=== PATIENT | female | born 1965 | race Caucasian/White ===

== ENCOUNTER 2016-09-19 18:07 | Emergency (ER) | payer SELFPAY ==
[~2016-09-19] VITALS: Ht 154.9 cm; Wt 67.5 kg
[~2016-09-19 18:07] MED LIST: CLON0.2T PO; GABA300C5 PO; LAMO25TA PO; MACR100C2 PO; TRAZ50TA12 PO; ZOFR4TAB3 SL
[2016-09-19 18:13] VITALS: BP 184/109; PULSE 112; RESP 18; TEMP 98.9; O2SAT 97
--- NOTE | 2016-09-19 18:58 | RADHPO ---
EXAM DATE/TIME: 09/19/2016 18:36 [facility] COMPARISON: No previous studies available for comparison. INDICATIONS : Complains of fifth digit, left foot pain, after stubbing toe. MEDICAL HISTORY : None. SURGICAL HISTORY : None. ENCOUNTER: Initial ACUITY: 1 day PAIN SCORE: 7/10 LOCATION: Left foot, fifth digit FINDINGS: There is a fracture of the fifth proximal phalanx with slight angulation. It involves the metaphysis. CONCLUSION: Fifth proximal phalangeal fracture. Ricky Pink MD on September 19, 2016 at 18:56 Board Certified Radiologist. This report was verified electronically.
[2016-09-19] MEDS ORDERED: LAMO100 PO (19:17)
[2016-09-19] MEDS ORDERED: ACETAMINOPHEN/HYDROcodone 325 MG/5 MG TAB PO ONE (19:30)
[2016-09-19] MEDS ORDERED: ULTR50TA5 PO (19:38)
--- NOTE | 2016-09-19 19:38 | PD ---
HPI . Left fifth toe injury Chief Complaint: Injury Time Seen by Provider: 19:21 Travel History International Travel<30 days: No Contact w/Intl Traveler<30days: No Traveled to known affect area: No History of Present Illness HPI Patient presents with an injury to her left fifth toe. She inadvertently kicked a piece of furniture. This occurred about 3 hours ago. She states that she has treated it prior to arrival with tape, ice and ibuprofen. Despite this , she is still low on her foot secondary to pain. [id number]: Left fifth toe QUALITY: Sharp SEVERITY: Severe DURATION: 3 hours TIMING: Continuous CONTEXT: Toe versus furniture MODIFYING FACTORS: Exacerbated by walking ASSOCIATED SYMPTOMS: No associated symptoms PFSH Past Medical History Hx Anticoagulant Therapy: No Arthritis: Yes (PSORIATIC ARTHRITIS) Asthma: No Autoimmune Disease: No Bipolar Disorder: Yes Anxiety: Yes Depression: Yes Heart Rhythm Problems: No Cancer: No Cardiovascular Problems: Yes (HTN) High Cholesterol: No Chemotherapy: No Chest Pain: No Congestive Heart Failure: No COPD: No Cerebrovascular Accident: No Diabetes: Yes (2) Patient Takes Glucophage: No Diminished Hearing: No Endocrine: Yes GERD: Yes Genitourinary: No Headaches: Yes Hiatal Hernia: Yes Hypertension: Yes ( ) Immune Disorder: No Implanted Vascular Access Dvce: No Musculoskeletal: Yes Neurologic: No Psychiatric: Yes Reproductive: No Respiratory: No Immunizations Current: Yes Migraines: Yes Pancreatitis: Yes Radiation Therapy: No Sleep Apnea: No Thyroid Disease: No Ulcer: Yes Tetanus Vaccination: > 5 Years Influenza Vaccination: No PNEUMOCCOCAL Vaccine (Year): 2 ?: Not Menopausal: Yes Past Surgical History Abdominal Surgery: Yes (Perforated ulcer) Cardiac Surgery: No Cholecystectomy: Yes Ear Surgery: No Endocrine Surgery: No Eye Surgery: Yes (LASER SX 2007 LAZY EYE REPAIR CHILD) Genitourinary Surgery: No Gynecologic Surgery: No Hysterectomy: No Neurologic Surgery: No Oral Surgery: Yes (tooth extractions 2007) Pacemaker: No Thoracic Surgery: No Social History Alcohol Use: No Tobacco Use: Yes (1 PPD) Substance Use: No (hx marijuana; denies current use) Allergies-Medications (Allergen,Severity, Reaction): Coded Allergies: Percocet (Verified Allergy, Severe, NAUSEA, 09/19/16) Nonsteroidal Anti-Inflammatory Agts (Verified Adverse Reaction, Unknown, ) avoids due to hx Voltaren (Verified Adverse Reaction, Unknown, upset stomach, ulcer, 09/19/16 ) Reported Meds & Prescriptions Reported Meds & Active Scripts Active Reported Lamictal (Lamotrigine) 100 Mg Tab 100 Mg PO DAILY Clonidine (Clonidine HCl) 0.2 Mg Tab 0.2 Mg PO BID Review of Systems Except as stated in HPI: all other systems reviewed are Neg Musculoskeletal: Positive: Arthralgias Skin: Positive Change in Pigmentation Physical Exam Narrative GENERAL: Awake and alert and in no acute distress. SKIN: Warm and dry. She has some bruising at the base of the left fifth toe. CARDIOVASCULAR: Regular rate and rhythm. RESPIRATORY: No accessory muscle use. MUSCULOSKELETAL: No obvious deformities. No edema. Tender at the base of the left fifth toe. NEUROLOGICAL: Awake and alert. No obvious cranial nerve deficits. Motor grossly within normal limits. Normal speech. PSYCHIATRIC: Appropriate mood and affect; insight and judgment normal. Data Data Last Documented VS Vital Signs Date Time Temp Pulse Resp B/P Pulse Ox O2 Delivery O2 Flow Rate FiO2 09/19/16 18:13 98.9 112 18 184/109 97 Orders Toe (Min 2vws) (09/19/16 ) Acetamin-Hydrocod 325-5 Mg ([place] 5-325 (09/19/16 19:30) MDM Medical Decision Making Medical Screen Exam Complete: Yes Emergency Medical Condition: Yes Differential Diagnosis Differential diagnosis of extremity trauma includes but is not limited to fracture, sprain or strain, dislocation, contusion Narrative Course Patient presents for treatment of a left fifth toe injury. Last Impressions Toe X-Ray 09/19/16 0000 Signed Impressions: Service Date/Time: Monday, September 19, 2016 18:36 - CONCLUSION: Fifth proximal phalangeal fracture. Ricky Pink MD The x-ray was independently viewed by me. Diagnosis Primary Impression: Fracture of fifth toe, left, closed Qualified Code: S92.502A - Fracture of fifth toe, left, closed, initial encounter Patient Instructions: General Instructions, Toe Fracture (DC) Med/Other Pt SpecificInfo: Prescription(s) given Scripts Tramadol (Ultram)50 Mg Tab50 Mg PO Q4H PRN (PAIN) #12 TAB Ref 0 Prov:Gladys Francisco MD 09/19/16 Disposition: 01 DISCHARGE HOME Condition: Stable Gladys Francisco MD Sep 19, 2016 19:38
== END 2016-09-19 20:23 | disposition home or self-care (01) ==
LOC: PHED 18:07 → PHEFT 20:23
DX: S92.512A Displaced fracture of proximal phalanx of left lesser toe(s), initial encounter for closed fracture (principal); L40.50 Arthropathic psoriasis, unspecified; F31.9 Bipolar disorder, unspecified; F41.9 Anxiety disorder, unspecified; I10 Essential (primary) hypertension; E11.9 Type 2 diabetes mellitus without complications; K21.9 Gastro-esophageal reflux disease without esophagitis; F17.200 Nicotine dependence, unspecified, uncomplicated; W22.03XA Walked into furniture, initial encounter
CPT/HCPCS: 73660; 99283

== ENCOUNTER 2016-09-22 12:21 | Emergency (ER) | payer SELFPAY ==
[~2016-09-22] VITALS: Ht 154.9 cm; Wt 68.0 kg
[~2016-09-22 12:21] MED LIST changes: -GABA300C5 PO; +LAMO100 PO; -LAMO25TA PO; -MACR100C2 PO; -TRAZ50TA12 PO; +ULTR50TA5 PO; -ZOFR4TAB3 SL
[2016-09-22 12:34] VITALS: BP 168/89; PULSE 105; RESP 16; TEMP 98.4; O2SAT 97
--- NOTE | 2016-09-22 13:18 | PD ---
HPI Chief Complaint: Injury Time Seen by Provider: 13:16 Travel History International Travel<30 days: No Contact w/Intl Traveler<30days: No Traveled to known affect area: No History of Present Illness HPI 51-year-old female with recent history of fractured left fifth metatarsal presents to the ED for evaluation of left foot pain. Patient states that she went back to work today, reinjured the toe, felt a pop in the foot and has been non-weight bearing since. She denies numbness, tingling, weakness, limitations to range of motion or loss of strength of the extremity. PFSH Past Medical History Hx Anticoagulant Therapy: No Arthritis: Yes (PSORIATIC ARTHRITIS) Asthma: No Autoimmune Disease: No Bipolar Disorder: Yes Anxiety: Yes Depression: Yes Heart Rhythm Problems: No Cancer: No Cardiovascular Problems: Yes (CHOL) High Cholesterol: No Chemotherapy: No Chest Pain: No Congestive Heart Failure: No COPD: No Cerebrovascular Accident: No Diabetes: Yes (TYPE 2) Patient Takes Glucophage: Yes Diminished Hearing: No Endocrine: Yes GERD: Yes Genitourinary: No Headaches: Yes Hiatal Hernia: Yes Hypertension: Yes ( ) Immune Disorder: No Implanted Vascular Access Dvce: No Musculoskeletal: Yes Neurologic: No Psychiatric: Yes Reproductive: No Respiratory: No Immunizations Current: Yes Migraines: Yes Pancreatitis: Yes Radiation Therapy: No Sleep Apnea: No Thyroid Disease: No Ulcer: Yes Tetanus Vaccination: > 5 Years Influenza Vaccination: Yes PNEUMOCCOCAL Vaccine (Year): 2 ?: Not Menopausal: Yes Past Surgical History Abdominal Surgery: Yes (Perforated ulcer) Cardiac Surgery: No Cholecystectomy: Yes Ear Surgery: No Endocrine Surgery: No Eye Surgery: Yes (LASER SX 2006 LAZY EYE REPAIR CHILD) Genitourinary Surgery: No Gynecologic Surgery: No Hysterectomy: No Neurologic Surgery: No Oral Surgery: Yes (tooth extractions 2007) Pacemaker: No Thoracic Surgery: No Social History Alcohol Use: No Tobacco Use: Yes (1 PPD) Substance Use: No (hx marijuana; denies current use) Allergies-Medications (Allergen,Severity, Reaction): Coded Allergies: Percocet (Verified Allergy, Severe, NAUSEA, 09/22/16) Nonsteroidal Anti-Inflammatory Agts (Verified Adverse Reaction, Unknown, ) avoids due to hx Voltaren (Verified Adverse Reaction, Unknown, upset stomach, ulcer, 09/22/16 ) Reported Meds & Prescriptions Reported Meds & Active Scripts Active Lortab (Hydrocodone-Acetaminophen) 5-325 Mg Tab 1 Tab PO Q6H PRN Ultram (Tramadol HCl) 50 Mg Tab 50 Mg PO Q4H PRN Reported Lamictal (Lamotrigine) 100 Mg Tab 100 Mg PO DAILY Clonidine (Clonidine HCl) 0.2 Mg Tab 0.2 Mg PO BID Review of Systems Except as stated in HPI: all other systems reviewed are Neg Physical Exam Narrative GENERAL: Well-nourished, well-developed white female in no acute distress. SKIN: Focused skin assessment warm/dry. HEAD: Normocephalic. EYES: No scleral icterus. No injection or drainage. NECK: Supple, trachea midline. No JVD or lymphadenopathy. CARDIOVASCULAR: Regular rate and rhythm without murmurs, gallops, or rubs. RESPIRATORY: Breath sounds equal bilaterally. No accessory muscle use. GASTROINTESTINAL: Abdomen soft, non-tender, nondistended. MUSCULOSKELETAL: No cyanosis, or edema. Focused left lower extremity exam: 2+ radial pulse. Ecchymosis of the distal aspect of the dorsal foot. Tenderness to palpation of the fifth digit. Tenderness to palpation of the neck radicular. Patient is able to wiggle the toes. She is able to flex the ankle. Neurovascularly intact. BACK: Nontender without obvious deformity. No CVA tenderness. Data Data Last Documented VS Vital Signs Date Time Temp Pulse Resp B/P Pulse Ox O2 Delivery O2 Flow Rate FiO2 09/22/16 12:34 98.4 105 16 168/89 97 Orders Foot, Complete ([id number]) (09/22/16 13:14) Acetamin-Hydrocod 325-5 Mg ([place] 5-325 (09/22/16 13:30) Crutches (09/22/16 13:57) MDM Medical Decision Making Medical Screen Exam Complete: Yes Emergency Medical Condition: Yes Differential Diagnosis Fracture versus contusion versus ligamentous injury versus other Narrative Course 51-year-old female with recent history of fractured left fifth metatarsal presents to the ED for evaluation of left foot pain. Patient states that she went back to work today, reinjured the toe, felt a pop in the foot and has been non-weight bearing since. She denies numbness, tingling, weakness, limitations to range of motion or loss of strength of the extremity. Vitals reviewed. Physical exam reveals toxic appearing white female no acute distress. Focused left lower extremity exam reveals a2+ radial pulse. Ecchymosis of the distal aspect of the dorsal foot. Tenderness to palpation of the fifth digit. Tenderness to palpation of the neck radicular. Patient is able to wiggle the toes. She is able to flex the ankle. Neurovascularly intact. He was administered Lortab and ice pack. X-ray revealed no worsening of the fracture was new injury per my read. Radiology read pending. The toe was laura taped. The patient was placed back in her postop shoe. She was provided a pair of crutches and a short course of Lortab. She is instructed to weight-bear as tolerated, take meds as prescribed, follow-up with the sports fitness and wellness director or primary care provider. She was provided a note to excuse for work today. She indicated understanding of the instructions and is agreeable to the care plan. This patient is stable and discharged home. Diagnosis Primary Impression: Fracture of fifth toe, left, closed Qualified Code: S92.502D - Fracture of fifth toe, left, closed, with routine healing, subsequent encounter Additional Impression: Contusion of left foot Qualified Code: S90.32XA - Contusion of left foot, initial encounter Referrals: [employer] Runner Operator Patient Instructions: General Instructions, Toe Fracture (ED) Departure Forms: Tests/Procedures, Work Release Enter return to work date: Sep 26, 2016 Additional Instructions: Rest, ice, elevate the extremity. Apply ice no longer than 10-15 minutes per hour a few times a day. Wear the post op shoe as discussed. Lortab as prescribed. Toe-touch weightbearing as tolerated. Return to normal, gentle activity as tolerated. No running, jumping activities for the next few weeks. Follow up with orthopedist or your primary care provider. Return to the ED for any urgent or emergent medical condition. Med/Other Pt SpecificInfo: Prescription(s) given Scripts Hydrocodone-Acetaminophen (Lortab)5-325 Mg Tab1 Tab PO Q6H PRN (PAIN) #10 TAB Ref 0 Prov:Indigo Thomas MD 09/22/16 Disposition: 01 DISCHARGE HOME Condition: Stable Jacqueline Renee Sep 22, 2016 13:18
[2016-09-22] MEDS ORDERED: ACETAMINOPHEN/HYDROcodone 325 MG/5 MG TAB PO ONE (13:30)
[2016-09-22] MEDS ORDERED: TRAM50TA PO (14:04)
[2016-09-22] MEDS ORDERED: HYDR-3533 PO (14:10)
--- NOTE | 2016-09-22 14:21 | RADHPO ---
EXAM DATE/TIME: 09/22/2016 13:42 [facility] COMPARISON: FOOT LEFT COMPLETE ([id number]), May 21, 2014, 13:13. INDICATIONS : Left foot pain; possible re injury to fractured 5th digit today after fall. MEDICAL HISTORY : None. SURGICAL HISTORY : None. ENCOUNTER: [facility] ACUITY: 1 day PAIN SCORE: 9/10 LOCATION: Left 5th digit; foot. FINDINGS: There is a minimally angulated fracture of the proximal metaphysis of the 5th digit proximal phalanx. No evidence of intra-articular extension. No radiopaque foreign bodies. The rest of the osseous s tructures of the forefoot are intact. CONCLUSION: Fracture of the proximal phalanx of the 5th digit. Zackary Patel MD on September 22, 2016 at 14:19 Board Certified Radiologist. This report was verified electronically.
== END 2016-09-22 14:26 | disposition home or self-care (01) ==
LOC: PHED 12:21
DX: S90.32XA Contusion of left foot, initial encounter (principal); S92.502D Displaced unspecified fracture of left lesser toe(s), subsequent encounter for fracture with routine healing; E11.9 Type 2 diabetes mellitus without complications; I10 Essential (primary) hypertension; F17.200 Nicotine dependence, unspecified, uncomplicated; X58.XXXA Exposure to other specified factors, initial encounter; X58.XXXD Exposure to other specified factors, subsequent encounter; Z79.84 Long term (current) use of oral hypoglycemic drugs; Z87.39 Personal history of other diseases of the musculoskeletal system and connective tissue; Z86.59 Personal history of other mental and behavioral disorders; Z86.79 Personal history of other diseases of the circulatory system; Z86.69 Personal history of other diseases of the nervous system and sense organs; Z87.19 Personal history of other diseases of the digestive system
CPT/HCPCS: 73630; 99283; E0113

== ENCOUNTER 2016-10-31 08:05 | Emergency (ER) | payer SELFPAY ==
[~2016-10-31] VITALS: Ht 154.9 cm; Wt 71.0 kg
[~2016-10-31 08:05] MED LIST changes: +HYDR-3533 PO
[2016-10-31 08:10] VITALS: BP 189/110; PULSE 116; RESP 16; TEMP 98.7; O2SAT 97
[2016-10-31] MEDS ORDERED: GUAI100S5 PO (08:29)
[2016-10-31] MEDS ORDERED: AZIT250T3 PO (08:29)
[2016-10-31] MEDS ORDERED: DEXAMETHASONE SOD PHOS 4 MG/ML VIAL IM ONE (08:30)
[2016-10-31] MEDS ORDERED: guaiFENesin/CODEINE SYRUP 200 MG/20 MG/10 ML CUP PO ONE (08:30)
[2016-10-31] MEDS ORDERED: ALBUTEROL SULFATE 90 MCG/ACT HFA 8 GM INHALER INH ONE (08:30)
--- NOTE | 2016-10-31 08:30 | PD ---
HPI Chief Complaint: Chest Pain Time Seen by Provider: 08:12 Travel History International Travel<30 days: No Contact w/Intl Traveler<30days: No Traveled to known affect area: No History of Present Illness HPI 51-year-old female arrives with chest pain on the right side. It started during a severe coughing spell. Subjective fever reported over the weekend. Her significant other has had exact same symptoms. Pain is worse with deep inspiration and well lying supine. Patient smokes however denies a history of COPD/bronchitis/asthma. No recent travel. No exogenous hormone use. No recent major traumatic injury or hospitalization or medical procedure. No history DVT. She reports borderline diabetes, hypertension and hyperlipidemia. The patient smokes. PFSH Past Medical History Hx Anticoagulant Therapy: No Arthritis: Yes (PSORIATIC ARTHRITIS) Asthma: No Autoimmune Disease: No Bipolar Disorder: Yes Anxiety: Yes Depression: Yes Heart Rhythm Problems: No Cancer: No Cardiovascular Problems: Yes (CHOL) High Cholesterol: No Chemotherapy: No Chest Pain: No Congestive Heart Failure: No COPD: No Cerebrovascular Accident: No Diabetes: Yes (TYPE 2) Patient Takes Glucophage: No Diminished Hearing: No Endocrine: Yes GERD: Yes Genitourinary: No Headaches: Yes Hiatal Hernia: Yes Hypertension: Yes ( ) Immune Disorder: No Implanted Vascular Access Dvce: No Musculoskeletal: Yes Neurologic: No Psychiatric: Yes Reproductive: No Respiratory: No Immunizations Current: Yes Migraines: Yes Pancreatitis: Yes Radiation Therapy: No Sleep Apnea: No Thyroid Disease: No Ulcer: Yes Influenza Vaccination: No PNEUMOCCOCAL Vaccine (Year): 2 ?: Not Menopausal: Yes Past Surgical History Abdominal Surgery: Yes (Perforated ulcer) Cardiac Surgery: No Cholecystectomy: Yes Ear Surgery: No Endocrine Surgery: No Eye Surgery: Yes (LASER SX 2007 LAZY EYE REPAIR CHILD) Genitourinary Surgery: No Gynecologic Surgery: No Hysterectomy: No Neurologic Surgery: No Oral Surgery: Yes (tooth extractions 2007) Pacemaker: No Thoracic Surgery: No Social History Alcohol Use: No Tobacco Use: Yes (1 PPD) Substance Use: No (hx marijuana; denies current use) Allergies-Medications (Allergen,Severity, Reaction): Coded Allergies: Percocet (Verified Allergy, Severe, NAUSEA, 09/22/16) Nonsteroidal Anti-Inflammatory Agts (Verified Adverse Reaction, Unknown, ) avoids due to hx Voltaren (Verified Adverse Reaction, Unknown, upset stomach, ulcer, 09/22/16 ) Reported Meds & Prescriptions Reported Meds & Active Scripts Active Guaifenesin-Codeine Liq 100-10 Mg/5 Ml Soln 10 Ml PO Q6H PRN Azithromycin 250 Mg Tab 250 Mg PO DIRECTED Take 2 tabs (500 mg) on day 1 then 1 tab daily x 4 days. Reported Lamictal (Lamotrigine) 100 Mg Tab 100 Mg PO DAILY Clonidine (Clonidine HCl) 0.2 Mg Tab 0.2 Mg PO BID Review of Systems Except as stated in HPI: all other systems reviewed are Neg General / Constitutional: Positive: Fever, Chills Cardiovascular: Positive: Chest Pain or Discomfort, Tachycardia, No: Palpitations, Diaphoresis Respiratory: Positive: Cough, Shortness of Breath Physical Exam Narrative GENERAL: 51-year-old female pleasant and speaking in full sentences of significant distress SKIN: Focused skin assessment warm/dry. HEAD: Atraumatic. Normocephalic. EYES: Pupils equal and round. No scleral icterus. No injection or drainage. ENT: No nasal bleeding or discharge. Mucous membranes pink and moist. NECK: Trachea midline. No JVD. CARDIOVASCULAR: Tachycardia. Regular rhythm. RESPIRATORY: Occasional wheeze bilaterally. No accessory muscle use or tachypnea. GASTROINTESTINAL: Abdomen soft, non-tender, nondistended. Hepatic and splenic margins not palpable. MUSCULOSKELETAL: No obvious deformities. No clubbing. No cyanosis. No edema. NEUROLOGICAL: Awake and alert. No obvious cranial nerve deficits. Motor grossly within normal limits. Normal speech. PSYCHIATRIC: Appropriate mood and affect; insight and judgment normal. Data Data Last Documented VS Vital Signs Date Time Temp Pulse Resp B/P Pulse Ox O2 Delivery O2 Flow Rate FiO2 10/31/16 08:10 98.7 116 16 189/110 97 Vital signs reviewed Orders Albuterol Hfa Inh (Proair Hfa Inh) (10/31/16 08:30) Dexamethasone Inj (Decadron Inj) (10/31/16 08:30) Guaifen-Cod 200-20 Mg/10ml Liq (Robituss (10/31/16 08:30) MDM Medical Decision Making Medical Screen Exam Complete: Yes Emergency Medical Condition: Yes Medical Record Reviewed: Yes Differential Diagnosis NSTEMI, unstable angina, coronary vasospasm, PE, PTX, aortic dissection, pericarditis, myocarditis, endocarditis, PNA, esophageal disease, aneurysm, musculoskeletal etiologies, anxiety, cocaine/sympathomimetic abuse Narrative Course The EKG reveals a sinus rhythm with a rate of 127 normal axis and intervals The patient has a productive cough history of subjective fever for the past couple days and her significant other has the same symptoms. Obviously pleuritic chest pain and a case such as this could suggest PE however most certainly musculoskeletal cause is considered as a the pain started during a severe coughing spell. Trending her vital signs reveals tachycardia dating years back source of today's tachycardia is nonspecific. She also notes taking [id number] cough medication which has helped minimally. This presentation is considered be most in keeping with a bronchitis or perhaps a pneumonia coupled with the patient's smoking history which could most certainly contribute to any pulmonary symptom. Index of suspicion for PE based on clinical gestalt based on careful and thorough review of the case at hand and the patient's prior data on record is sufficiently low enough to warrant avoiding hyper utilization. For example the patient's had 9 prior abdomen pelvis CTs. Decadron IM and albuterol given here. Azithromycin and cough suppressant prescription. Return precautions discussed in great detail. Pt quite appreciative and comfortable with plan. Diagnosis Primary Impression: URI (upper respiratory infection) Qualified Code: J06.9 - Upper respiratory tract infection, unspecified type Additional Impression: Chest pain Qualified Code: R07.9 - Chest pain, unspecified type Referrals: Primary Care Physician 2 days Additional Instructions: You have a choice when it comes to health care, and we are glad that you chose [facility]. Hopefully, we have met your expectations on today's visit. You are welcome to return to [facility] at any time, as we are committed to meeting the health care needs of our community. Med/Other Pt SpecificInfo: Prescription(s) given Scripts Guaifenesin-Codeine Liq 100-10 Mg/5 Ml Soln10 Ml PO Q6H PRN (COUGH) #1 BOTTLE Ref 0 Prov:Dariel Ortiz MD 10/31/16 Azithromycin 250 Mg Sew871 Mg PO DIRECTED #6 TAB Ref 0 Take 2 tabs (500 mg) on day 1 then 1 tab daily x 4 days. Prov:Dariel Ortiz MD 10/31/16 Disposition: 01 DISCHARGE HOME Condition: Stable Dariel Ortiz MD October 31, 2016 08:30
--- NOTE | 2016-10-31 14:37 | EKG ---
Date Performed: 10/31/2016 Time Performed: 08:09:36 PTAGE: 51 years EKG: Sinus tachycardia Possible inferior infarct - age undetermined Low QRS voltages in precordi al leads Diffuse non-specific ST-T changes Since prior tracing, sinus rate has increased. ST changes are new. Clinical correlation is recommended. Abnormal ECG PREVIOUS TRACING on 03/26/2015 13.00 DOCTOR: Maik Mccoy Interpretating Date/Time 10/31/2016 14:35:40
== END 2016-10-31 09:16 | disposition home or self-care (01) ==
LOC: PHED 08:05
DX: J06.9 Acute upper respiratory infection, unspecified (principal); R07.9 Chest pain, unspecified; R00.0 Tachycardia, unspecified; R94.31 Abnormal electrocardiogram [ECG] [EKG]; L40.50 Arthropathic psoriasis, unspecified; E11.9 Type 2 diabetes mellitus without complications; K21.9 Gastro-esophageal reflux disease without esophagitis; I10 Essential (primary) hypertension; F17.210 Nicotine dependence, cigarettes, uncomplicated
CPT/HCPCS: 93005; 94664; 96372; 99284; J1100

== ENCOUNTER 2017-02-10 12:36 | Emergency (ER) | payer SELFPAY ==
[~2017-02-10] VITALS: Ht 154.9 cm; Wt 68.8 kg
[~2017-02-10 12:36] MED LIST changes: +AZIT250T3 PO; +GUAI100S5 PO; -HYDR-3533 PO; -ULTR50TA5 PO
[2017-02-10 12:47] VITALS: BP 160/74; PULSE 90; RESP 18; TEMP 97.6; O2SAT 97
[2017-02-10 13:10] VITALS: BP 117/76; PULSE 81; RESP 16; O2SAT 96; O2SAT 99
[2017-02-10] MEDS ORDERED: SODIUM CHLOR 0.9% 1000 ML INJ 1,000 ML IV SCH (13:12)
[2017-02-10] MEDS ORDERED: MORPHINE SULFATE 8 MG/ML INJ IV PUSH ONE (13:15)
[2017-02-10] MEDS ORDERED: SODIUM CHLORIDE 0.9% FLUSH 10 ML FLUSH IV FLUSH PRN (13:15)
[2017-02-10] MEDS ORDERED: ONDANSETRON HCL 4 MG/2 ML VIAL IVP ONE (13:15)
[2017-02-10 13:31] LABS: AUTOMATED NEUTROPHIL # 7.8 TH/MM3 (1.8-7.7); BASOPHIL # 0.4 TH/MM3 (0-0.2); BASOPHIL % 3.3 % (0.0-2.0); EOSINOPHIL # 0.1 TH/MM3 (0-0.4); EOSINOPHIL % 0.7 % (0.0-4.0); HEMATOCRIT 45.9 % (35.0-46.0); HEMO FLAGS DIFF FINAL; LYMPH % 21.9 % (9.0-44.0); LYMPHOCYTE # 2.4 TH/MM3 (1.0-4.8); MEAN CELL VOLUME 88.4 FL (80.0-100.0); MEAN CORPUSCULAR HEMOGLOBIN 29.8 PG (27.0-34.0); MEAN CORPUSCULAR HGB CONC 33.7 % (32.0-36.0); MONO % 2.7 % (0.0-8.0); NEUT % 71.4 % (16.0-70.0); PLATELET COUNT 379 TH/MM3 (150-450); RED CELL DISTRIBUTION WIDTH 12.8 % (11.6-17.2)
[2017-02-10 13:38] LABS: CHLORIDE 103 MEQ/L (98-107); POTASSIUM 4.6 MEQ/L (3.5-5.1); SODIUM (NA) 138 MEQ/L (136-145)
[2017-02-10 13:42] LABS: ANION GAP 10 MEQ/L (5-15); BICARBONATE 25.2 MEQ/L (21.0-32.0)
[2017-02-10 13:43] LABS: BLOOD UREA NITROGEN 17 MG/DL (7-18)
[2017-02-10 13:45] LABS: ALT (GPT) 27 U/L (10-53); AST (GOT) 31 U/L (15-37)
[2017-02-10 13:46] LABS: GLOMERULAR FILTRATION RATE 62 ML/MIN (>89)
[2017-02-10 13:47] LABS: TOTAL BILIRUBIN ADULT 0.6 MG/DL (0.2-1.0)
[2017-02-10 13:48] LABS: ALKALINE PHOSPHATASE 82 U/L (45-117)
--- NOTE | 2017-02-10 14:12 | PD ---
HPI Chief Complaint: Abdominal Pain Time Seen by Provider: 13:06 Travel History International Travel<30 days: No Contact w/Intl Traveler<30days: No Traveled to known affect area: No History of Present Illness HPI The patient's 51 years old. She complains of pain in the left upper quadrant. She has a history of peptic ulcer disease. She states it feels similar. She's had no fever. She's had no shortness of breath. Duration has been 2 days. Nausea and loose stools reported. PFSH Past Medical History Hx Anticoagulant Therapy: No Arthritis: Yes (PSORIATIC ARTHRITIS) Asthma: No Autoimmune Disease: No Bipolar Disorder: Yes Anxiety: Yes Depression: Yes Heart Rhythm Problems: No Cancer: No Cardiovascular Problems: Yes (htn on meds) High Cholesterol: No Chemotherapy: No Chest Pain: No Congestive Heart Failure: No COPD: No Cerebrovascular Accident: No Diabetes: Yes (TYPE 2) Patient Takes Glucophage: No (diet control) Diminished Hearing: No Endocrine: Yes GERD: Yes Genitourinary: No Headaches: Yes Hiatal Hernia: Yes Hypertension: Yes ( ) Immune Disorder: No Implanted Vascular Access Dvce: No Medical other: Yes (chronic back pain ,left shoulder, left hip and neck pain) Musculoskeletal: Yes Neurologic: No Psychiatric: Yes Reproductive: No Respiratory: No Immunizations Current: Yes Migraines: Yes Pancreatitis: Yes Radiation Therapy: No Sleep Apnea: No Thyroid Disease: No Ulcer: Yes Tetanus Vaccination: > 5 Years Influenza Vaccination: No PNEUMOCCOCAL Vaccine (Year): 2 ?: Not LMP: menapause Menopausal: Yes Past Surgical History Abdominal Surgery: Yes (Perforated ulcer -colon) Cardiac Surgery: No Cholecystectomy: Yes Ear Surgery: No Endocrine Surgery: No Eye Surgery: Yes (LASER SX 2006 LAZY EYE REPAIR CHILD) Genitourinary Surgery: No Gynecologic Surgery: No Hysterectomy: No Neurologic Surgery: No Oral Surgery: Yes (tooth extractions 2007) Pacemaker: No Thoracic Surgery: No Social History Alcohol Use: No (hx of etoh abuse last drink 08/2015) Tobacco Use: Yes (1 PPD) Substance Use: No (hx marijuana; denies current use) Allergies-Medications (Allergen,Severity, Reaction): Coded Allergies: acetaminophen (Unverified Allergy, Severe, NAUSEA, 02/10/17) oxycodone (Unverified Allergy, Severe, NAUSEA, 02/10/17) diclofenac (Unverified Adverse Reaction, Unknown, upset stomach, ulcer, ) avoids due to hx etodolac (Unverified Adverse Reaction, Unknown, 02/10/17) avoids due to hx flurbiprofen (Unverified Adverse Reaction, Unknown, 02/10/17) avoids due to hx ibuprofen (Unverified Adverse Reaction, Unknown, 02/10/17) avoids due to hx indomethacin (Unverified Adverse Reaction, Unknown, 02/10/17) avoids due to hx ketoprofen (Unverified Adverse Reaction, Unknown, 02/10/17) avoids due to hx ketorolac (Unverified Adverse Reaction, Unknown, 02/10/17) avoids due to hx naproxen (Unverified Adverse Reaction, Unknown, 02/10/17) avoids due to hx oxaprozin (Unverified Adverse Reaction, Unknown, 02/10/17) avoids due to hx Reported Meds & Prescriptions Reported Meds & Active Scripts Active Guaifenesin-Codeine Liq 100-10 Mg/5 Ml Soln 10 Ml PO Q6H PRN Azithromycin 250 Mg Tab 250 Mg PO DIRECTED Take 2 tabs (500 mg) on day 1 then 1 tab daily x 4 days. Reported Lamictal (Lamotrigine) 100 Mg Tab 100 Mg PO DAILY Clonidine (Clonidine HCl) 0.2 Mg Tab 0.2 Mg PO BID Review of Systems Except as stated in HPI: all other systems reviewed are Neg Physical Exam Narrative GENERAL: The patient is 51 years old, no acute distress speaking full sentences SKIN: Warm and dry. HEAD: Atraumatic. Normocephalic. EYES: Pupils equal and round. No scleral icterus. No injection or drainage. ENT: No nasal bleeding or discharge. Mucous membranes pink and moist. NECK: Trachea midline. No JVD. CARDIOVASCULAR: Regular rate and rhythm. RESPIRATORY: No accessory muscle use. Clear to auscultation. Breath sounds equal bilaterally. GASTROINTESTINAL: Soft. No significant tenderness. MUSCULOSKELETAL: Extremities without clubbing, cyanosis, or edema. No obvious deformities. NEUROLOGICAL: Awake and alert. No obvious cranial nerve deficits. Motor grossly within normal limits. Five out of 5 muscle strength in the arms and legs. Normal speech. PSYCHIATRIC: Appropriate mood and affect; insight and judgment normal. Data Data Last Documented VS Vital Signs Date Time Temp Pulse Resp B/P (MAP) Pulse Ox O2 Delivery O2 Flow Rate FiO2 02/10/17 14:13 74 16 149/78 (101) 99 Room Air 02/10/17 12:47 97.6 Vital signs reviewed Orders Orders Complete Blood Count With Diff (02/10/17 13:12) Comprehensive Metabolic Panel (02/10/17 13:12) Lipase (02/10/17 13:12) Iv Access Insert/Monitor (02/10/17 13:12) Ecg Monitoring (02/10/17 13:12) Oximetry (02/10/17 13:12) Ondansetron Inj (Zofran Inj) (02/10/17 13:15) Sodium Chlor 0.9% 1000 Ml Inj (Ns 1000 M (02/10/17 13:12) Sodium Chloride 0.9% Flush (Ns Flush) (02/10/17 13:15) Morphine Inj (Morphine Inj) (02/10/17 13:15) Al-Mag Hy-Si 40-40-4 Mg/Ml Liq (Mag-Al P (02/10/17 14:15) Lidocaine 2% Viscous (Xylocaine 2% Visco (02/10/17 14:15) Labs Laboratory Tests Test 02/10/17 13:25 White Blood Count 11.0 TH/MM3 Red Blood Count 5.20 MIL/MM3 Hemoglobin 15.5 GM/DL Hematocrit 45.9 % Mean Corpuscular Volume 88.4 FL Mean Corpuscular Hemoglobin 29.8 PG Mean Corpuscular Hemoglobin Concent 33.7 % Red Cell Distribution Width 12.8 % Platelet Count 379 TH/MM3 Mean Platelet Volume 7.1 FL Neutrophils (%) (Auto) 71.4 % Lymphocytes (%) (Auto) 21.9 % Monocytes (%) (Auto) 2.7 % Eosinophils (%) (Auto) 0.7 % Basophils (%) (Auto) 3.3 % Neutrophils # (Auto) 7.8 TH/MM3 Lymphocytes # (Auto) 2.4 TH/MM3 Monocytes # (Auto) 0.3 TH/MM3 Eosinophils # (Auto) 0.1 TH/MM3 Basophils # (Auto) 0.4 TH/MM3 CBC Comment DIFF FINAL Differential Comment Blood Urea Nitrogen 17 MG/DL Creatinine 0.96 MG/DL Random Glucose 111 MG/DL Total Protein 8.0 GM/DL Albumin 4.0 GM/DL Calcium Level 10.3 MG/DL Alkaline Phosphatase 82 U/L Aspartate Amino Transf (AST/SGOT) 31 U/L Alanine Aminotransferase (ALT/SGPT) 27 U/L Total Bilirubin 0.6 MG/DL Sodium Level 138 MEQ/L Potassium Level 4.6 MEQ/L Chloride Level 103 MEQ/L Carbon Dioxide Level 25.2 MEQ/L Anion Gap 10 MEQ/L Estimat Glomerular Filtration Rate 62 ML/MIN Lipase 83 U/L MDM Medical Decision Making Medical Screen Exam Complete: Yes Emergency Medical Condition: Yes Medical Record Reviewed: Yes Differential Diagnosis Constipation, Gastritis, Acute Cholecystitis, Biliary Colic, Pancreatitis, LOPEZ , Hepatitis, Bowel Obstruction, Cystitis, Mesenteric Ischemia, AAA, Appendicitis , Renal Stone/Hydronephrosis, GERD, perforated viscous Narrative Course CBC & BMP Diagram 02/10/17 13:25 Total Protein 8.0, Albumin 4.0, Calcium Level 10.3 H, Alkaline Phosphatase 82, Aspartate Amino Transf (AST/SGOT) 31, Alanine Aminotransferase (ALT/SGPT) 27, Total Bilirubin 0.6 Lipase normal The patient is resting comfortably and feels better, is alert and in no distress. The patients results and examination findings were discussed. The repeat examination is unremarkable and benign. The history, exam, diagnostic testing, and current condition do not suggest any significant pathology to warrant further testing, continued ED treatment, admission, or surgical evaluation at this point. The vital signs have been stable. The patient does not have uncontrollable pain, intractable vomiting, or other significant symptoms. The patient's condition is stable and appropriate for discharge. The patient will pursue further outpatient evaluation with a primary care physician or other designated or consulting physician as indicated in the discharge instructions. The patient expressed understanding and was agreeable with this plan. Diagnosis Primary Impression: Abdominal pain Qualified Codes: R10.13 - Epigastric pain Additional Impression: Gastritis Qualified Codes: K29.70 - Gastritis, unspecified, without bleeding Referrals: Primary Care Physician 2 days Additional Instructions: You have a choice when it comes to health care, and we are glad that you chose [email or web address]. Hopefully, we have met your expectations on today's visit. You are welcome to return to [email or web address] at any time, as we are committed to meeting the health care needs of our community. Med/Other Pt SpecificInfo: No Change to Meds Disposition: 01 DISCHARGE HOME Condition: Stable Dariel Ortiz MD Feb 10, 2017 14:12
[2017-02-10 14:13] VITALS: BP 149/78; PULSE 74; RESP 16; O2SAT 99
[2017-02-10] MEDS ORDERED: LIDOCAINE VISCOUS 2% SOLN 15 ML UDC PO ONE (14:15)
[2017-02-10] MEDS ORDERED: ALUMINUM/MAGNESIUM/SIMETH 30 ML CUP PO ONE (14:15)
[2017-02-10 14:53] VITALS: BP 124/70; PULSE 70; RESP 16; O2SAT 99
[2017-02-10 16:13] VITALS: BP 131/73
--- NOTE | 2017-02-11 18:42 | EKG ---
Date Performed: 02/10/2017 Time Performed: 12:56:22 PTAGE: 51 years EKG: Sinus rhythm POSSIBLE RIGHT VENTRICULAR CONDUCTION DELAY BORDERLINE ECG PREVIOUS TRACING : 10/31/2016 08.09 Compared to the previous tracing rate slower DOCTOR: Randi lAba Interpretating Date/Time 02/11/2017 18:41:52
== END 2017-02-10 16:15 | disposition home or self-care (01) ==
LOC: PHED 12:36
DX: R10.13 Epigastric pain (principal); K29.70 Gastritis, unspecified, without bleeding; M19.90 Unspecified osteoarthritis, unspecified site; I10 Essential (primary) hypertension; E11.9 Type 2 diabetes mellitus without complications; K21.9 Gastro-esophageal reflux disease without esophagitis; Z87.11 Personal history of peptic ulcer disease; Z87.19 Personal history of other diseases of the digestive system; F17.210 Nicotine dependence, cigarettes, uncomplicated
CPT/HCPCS: 80053; 83690; 85025; 93005; 96361; 96374; 96375; 99284; J2270; J2405; J7030

== ENCOUNTER 2017-06-18 23:52 | Emergency (ER) | payer SELFPAY ==
[~2017-06-18] VITALS: Ht 154.9 cm; Wt 66.0 kg
[2017-06-18 23:58] VITALS: BP 149/86; PULSE 92; RESP 18; TEMP 98.3; O2SAT 98
[2017-06-18] MEDS ORDERED: REME15TA PO (23:58)
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
[2017-06-19] MEDS ORDERED: KETOROLAC TROMETHAMINE 60 MG/2 ML (IM) VIAL IM ONE (00:30)
[2017-06-19] MEDS ORDERED: ALPRAZolam 1 MG TAB PO ONE (00:30)
[2017-06-19] MEDS ORDERED: ALPRAZolam 0.5 MG TAB PO ONE (00:30)
[2017-06-19] MEDS ORDERED: oxyCODONE/ACETAMINOPHEN 5 MG/325 MG TAB PO ONE (00:45)
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
[2017-06-19 02:13] VITALS: BP 133/80; PULSE 88; RESP 18; O2SAT 97
[2017-06-19] MEDS ORDERED: XANA1TAB2 PO (02:28)
[2017-06-19] MEDS ORDERED: HYDR-3516 PO (02:28)
--- NOTE | 2017-06-19 09:11 | EKG ---
Date Performed: 06/18/2017 Time Performed: 23:56:19 PTAGE: 51 years EKG: SINUS TACHYCARDIA ABNORMAL RHYTHM ECG Compared to prior electrocardiogram, rate has increas ed PREVIOUS TRACING : 02/10/2017 12.56 DOCTOR: Chuy Pineda Interpretating Date/Time 06/19/2017 09:10:01
== END 2017-06-19 02:56 | disposition home or self-care (01) ==
LOC: PHED 23:52
DX: S20.219A Contusion of unspecified front wall of thorax, initial encounter (principal); F41.9 Anxiety disorder, unspecified; R00.0 Tachycardia, unspecified; L40.50 Arthropathic psoriasis, unspecified; F31.9 Bipolar disorder, unspecified; E11.9 Type 2 diabetes mellitus without complications; I10 Essential (primary) hypertension; F17.210 Nicotine dependence, cigarettes, uncomplicated; Y04.2XXA Assault by strike against or bumped into by another person, initial encounter
CPT/HCPCS: 71250; 72125; 74176; 93005; 99285

== ENCOUNTER 2017-08-29 16:13 | Emergency (ER) | payer SELFPAY ==
[~2017-08-29] VITALS: Ht 154.9 cm; Wt 73.0 kg
[~2017-08-29 16:13] MED LIST changes: -AZIT250T3 PO; -GUAI100S5 PO; +HYDR-3516 PO; +REME15TA PO; +XANA1TAB2 PO
[2017-08-29] MEDS ORDERED: ASPIRIN 325 MG TAB PO ONE (16:45)
[2017-08-29 16:47] VITALS: BP 158/72; PULSE 105; RESP 20; TEMP 98.4; O2SAT 99
--- NOTE | 2017-08-29 17:08 | PD ---
HPI Chief Complaint: Chest Pain Time Seen by Provider: 16:35 Travel History International Travel<30 days: No Contact w/Intl Traveler<30days: No Traveled to known affect area: No History of Present Illness HPI This is a 52-year-old female with history of hypertension presents to the ER complaining of pain in her chest. Pain is substernal, 3 out of 10, comes and goes, lasts for more than 2 hours, nothing makes it worse or better. Patient reports stress in her life since her is in the ICU and she is worried about him. Patient is crying during the interview and went to visit her but then had pain in her chest from that her to come to the ER. She denies any sweating or palpitations, denies any shortness of breath, no cough or fever or abdominal pain. PFSH Past Medical History Hx Anticoagulant Therapy: No Arthritis: Yes (PSORIATIC ARTHRITIS) Asthma: No Autoimmune Disease: No Bipolar Disorder: Yes Anxiety: Yes Depression: Yes Heart Rhythm Problems: No Cancer: No Cardiovascular Problems: Yes (htn on meds) High Cholesterol: No Chemotherapy: No Chest Pain: No Congestive Heart Failure: No COPD: No Cerebrovascular Accident: No Diabetes: Yes (TYPE 2) Patient Takes Glucophage: No Diminished Hearing: No Endocrine: Yes GERD: Yes Genitourinary: No Headaches: Yes Hiatal Hernia: Yes Hypertension: Yes ( ) Immune Disorder: No Implanted Vascular Access Dvce: No Musculoskeletal: Yes Neurologic: No Psychiatric: Yes Reproductive: No Respiratory: No Immunizations Current: Yes Migraines: Yes Pancreatitis: Yes Radiation Therapy: No Sleep Apnea: No Thyroid Disease: No Ulcer: Yes Tetanus Vaccination: Unknown Influenza Vaccination: No PNEUMOCCOCAL Vaccine (Year): 2 ?: Not Menopausal: Yes Past Surgical History Abdominal Surgery: Yes (Perforated ulcer -colon) Cardiac Surgery: No Cholecystectomy: Yes Ear Surgery: No Endocrine Surgery: No Eye Surgery: Yes (LASER SX 2006 LAZY EYE REPAIR CHILD) Genitourinary Surgery: No Gynecologic Surgery: No Hysterectomy: No Neurologic Surgery: No Oral Surgery: Yes (tooth extractions 2007) Pacemaker: No Thoracic Surgery: No Social History Alcohol Use: No (hx of etoh abuse last drink 08/2015) Tobacco Use: Yes (1 PPD) Substance Use: No (hx marijuana; denies current use) Allergies-Medications (Allergen,Severity, Reaction): Coded Allergies: acetaminophen (Unverified Allergy, Severe, NAUSEA, 06/18/17) oxycodone (Unverified Allergy, Severe, NAUSEA, 06/18/17) diclofenac (Unverified Adverse Reaction, Unknown, upset stomach, ulcer, ) avoids due to hx etodolac (Unverified Adverse Reaction, Unknown, 06/18/17) avoids due to hx flurbiprofen (Unverified Adverse Reaction, Unknown, 06/18/17) avoids due to hx ibuprofen (Unverified Adverse Reaction, Unknown, 06/18/17) avoids due to hx indomethacin (Unverified Adverse Reaction, Unknown, 06/18/17) avoids due to hx ketoprofen (Unverified Adverse Reaction, Unknown, 06/18/17) avoids due to hx ketorolac (Unverified Adverse Reaction, Unknown, 06/18/17) avoids due to hx naproxen (Unverified Adverse Reaction, Unknown, 06/18/17) avoids due to hx oxaprozin (Unverified Adverse Reaction, Unknown, 06/18/17) avoids due to hx Reported Meds & Prescriptions Reported Meds & Active Scripts Active Protonix (Pantoprazole Sodium) 20 Mg Tab 20 Mg PO DAILY Hydrocodone-Acetaminophen 5-325 mg Tab 1 Tab PO Q4H PRN Xanax (Alprazolam) 1 Mg Tab 1 Mg PO Q8H PRN Reported Remeron (Mirtazapine) 15 Mg Tab 15 Mg PO HS Lamictal (Lamotrigine) 100 Mg Tab 100 Mg PO DAILY Clonidine (Clonidine HCl) 0.2 Mg Tab 0.2 Mg PO BID Review of Systems Except as stated in HPI: all other systems reviewed are Neg Physical Exam Narrative GENERAL: Alert and oriented 3, crying during the interview maintain eye contact , logical thinking. SKIN: Focused skin assessment warm/dry. HEAD: Atraumatic. Normocephalic. EYES: Pupils equal and round. No scleral icterus. No injection or drainage. ENT: No nasal bleeding or discharge. Mucous membranes pink and moist. NECK: Trachea midline. No JVD. CARDIOVASCULAR: Regular rate and rhythm. No murmur appreciated. RESPIRATORY: No accessory muscle use. Clear to auscultation. Breath sounds equal bilaterally. GASTROINTESTINAL: Abdomen soft, non-tender, nondistended. Hepatic and splenic margins not palpable. MUSCULOSKELETAL: No obvious deformities. No clubbing. No cyanosis. No edema. NEUROLOGICAL: Awake and alert. No obvious cranial nerve deficits. Motor grossly within normal limits. Normal speech. PSYCHIATRIC: Appropriate mood and affect; insight and judgment normal. Data Data Last Documented VS Vital Signs Date Time Temp Pulse Resp B/P (MAP) Pulse Ox O2 Delivery O2 Flow Rate FiO2 08/29/17 16:47 98.4 105 20 158/72 (100) 99 Orders Orders Electrocardiogram (08/29/17 16:39) B-Type Natriuretic Peptide (08/29/17 16:39) Ckmb (Isoenzyme) Profile (08/29/17 16:39) Complete Blood Count With Diff (08/29/17 16:39) Comprehensive Metabolic Panel (08/29/17 16:39) D-Dimer (08/29/17 16:39) Troponin I (08/29/17 16:39) Chest, Single Ap (08/29/17 16:39) Aspirin (Aspirin) (08/29/17 16:45) Ed Discharge Order (08/29/17 17:58) Tramadol (Ultram) (08/29/17 18:15) Labs Laboratory Tests Test 08/29/17 17:00 White Blood Count 8.8 TH/MM3 Red Blood Count 4.34 MIL/MM3 Hemoglobin 13.0 GM/DL Hematocrit 38.7 % Mean Corpuscular Volume 89.3 FL Mean Corpuscular Hemoglobin 30.0 PG Mean Corpuscular Hemoglobin Concent 33.6 % Red Cell Distribution Width 14.3 % Platelet Count 336 TH/MM3 Mean Platelet Volume 7.5 FL Neutrophils (%) (Auto) 56.6 % Lymphocytes (%) (Auto) 36.9 % Monocytes (%) (Auto) 3.8 % Eosinophils (%) (Auto) 1.9 % Basophils (%) (Auto) 0.8 % Neutrophils # (Auto) 5.0 TH/MM3 Lymphocytes # (Auto) 3.2 TH/MM3 Monocytes # (Auto) 0.3 TH/MM3 Eosinophils # (Auto) 0.2 TH/MM3 Basophils # (Auto) 0.1 TH/MM3 CBC Comment DIFF FINAL Differential Comment D-Dimer Quantitative (PE/DVT) 0.31 MG/L FEU Blood Urea Nitrogen 11 MG/DL Creatinine 0.70 MG/DL Random Glucose 140 MG/DL Total Protein 7.5 GM/DL Albumin 3.5 GM/DL Calcium Level 9.0 MG/DL Alkaline Phosphatase 85 U/L Aspartate Amino Transf (AST/SGOT) 16 U/L Alanine Aminotransferase (ALT/SGPT) 21 U/L Total Bilirubin LESS THAN 0.1 MG/DL Sodium Level 140 MEQ/L Potassium Level 3.5 MEQ/L Chloride Level 105 MEQ/L Carbon Dioxide Level 25.8 MEQ/L Anion Gap 9 MEQ/L Estimat Glomerular Filtration Rate 88 ML/MIN Total Creatine Kinase 68 U/L Troponin I LESS THAN 0.02 NG/ML B-Type Natriuretic Peptide 4 PG/ML MDM Medical Decision Making Medical Screen Exam Complete: Yes Emergency Medical Condition: Yes Differential Diagnosis Stress, acute coronary syndrome, pneumonia, pneumothorax, GERD. Narrative Course This is a 52-year-old female presents the ER complaining of chest pain. Patient states that her is being treated in the ICU and that she is worried about him and that is causing lots of stress for her. She has been crying during the interview I was constantly worried about her . EKG is showing no ST segment elevation or depression labs are unremarkable, chest x- ray is unremarkable, her symptoms could be attributed to stress or GERD believe this patient is stable to be discharged to follow-up with cardiology and primary care physician. Patient is not suicidal or homicidal but she reports stress, I discussed with the patient that if her symptoms change or do not improve that she is to come immediately to the ER, I also discussed with her that she would need to follow-up with cardiology if she continues to have chest pain. Diagnosis Primary Impression: GERD (gastroesophageal reflux disease) Qualified Codes: K21.9 - Gastro-esophageal reflux disease without esophagitis Additional Instructions: Take medications as directed, follow-up with cardiology and primary care physician return to ER if symptoms change or do not improve Scripts Pantoprazole (Protonix) 20 Mg Tab 20 MG PO DAILY for Reflux, #15 TAB 0 Refills Prov: Vijay Bolaños MD 08/29/17 Disposition: 01 DISCHARGE HOME Condition: Stable Vijay Bolaños MD Aug 29, 2017 17:08
[2017-08-29 17:18] LABS: BASOPHIL # 0.1 TH/MM3 (0-0.2); BASOPHIL % 0.8 % (0.0-2.0); EOSINOPHIL # 0.2 TH/MM3 (0-0.4); EOSINOPHIL % 1.9 % (0.0-4.0); HEMATOCRIT 38.7 % (35.0-46.0); LYMPH % 36.9 % (9.0-44.0); LYMPHOCYTE # 3.2 TH/MM3 (1.0-4.8); MEAN CELL VOLUME 89.3 FL (80.0-100.0); MEAN CORPUSCULAR HGB CONC 33.6 % (32.0-36.0); MEAN PLATELET VOLUME 7.5 FL (7.0-11.0); MONO % 3.8 % (0.0-8.0); MONOCYTE # 0.3 TH/MM3 (0-0.9); NEUT % 56.6 % (16.0-70.0); PLATELET COUNT 336 TH/MM3 (150-450); RED BLOOD COUNT 4.34 MIL/MM3 (4.00-5.30); RED CELL DISTRIBUTION WIDTH 14.3 % (11.6-17.2); WHITE BLOOD COUNT 8.8 TH/MM3 (4.0-11.0)
[2017-08-29 17:24] LABS: CHLORIDE 105 MEQ/L (98-107); SODIUM (NA) 140 MEQ/L (136-145)
[2017-08-29 17:30] LABS: ALBUMIN 3.5 GM/DL (3.4-5.0); BICARBONATE 25.8 MEQ/L (21.0-32.0); BLOOD UREA NITROGEN 11 MG/DL (7-18); GLUCOSE,RANDOM 140 MG/DL (74-106)
[2017-08-29 17:33] LABS: ALT (GPT) 21 U/L (10-53); AST (GOT) 16 U/L (15-37); GLOMERULAR FILTRATION RATE 88 ML/MIN (>89)
[2017-08-29 17:34] LABS: TOTAL BILIRUBIN ADULT LESS THAN 0.1 MG/DL (0.2-1.0)
[2017-08-29 17:35] LABS: TOTAL PROTEIN 7.5 GM/DL (6.4-8.2)
[2017-08-29 17:36] LABS: ALKALINE PHOSPHATASE 85 U/L (45-117)
[2017-08-29 17:38] LABS: TROPONIN I LESS THAN 0.02 NG/ML (0.02-0.05)
--- NOTE | 2017-08-29 17:44 | RADRPT ---
EXAM DATE/TIME: 08/29/2017 17:14 [facility] COMPARISON: None. INDICATIONS : <<Chest pain. >> MEDICAL HISTORY : Hypertension. Diabetes mellitus type II. Hiatal hernia. SURGICAL HISTORY : Fusion, cervical. ENCOUNTER: Initial ACUITY: 2 days PAIN SCORE: 6/10 LOCATION: Bilateral chest FINDINGS: A single view of the chest demonstrates the lungs to be symmetrically aerated without evidence of mas s, infiltrate or effusion. The cardiomediastinal contours are unremarkable. Osseous structures are intact. CONCLUSION: 1. No active disease. Fusion lower cervical spine. Les Strong MD on August 29, 2017 at 17:41 Board Certified Radiologist. This report was verified electronically.
[2017-08-29] MEDS ORDERED: PANT20 PO (17:58)
[2017-08-29] MEDS ORDERED: traMADol HCL 50 MG TAB PO ONE (18:15)
--- NOTE | 2017-08-30 23:40 | EKG ---
Date Performed: 08/29/2017 Time Performed: 16:25:12 PTAGE: 52 years EKG: SINUS TACHYCARDIA POSSIBLE LEFT ATRIAL ENLARGEMENT ABNORMAL RHYTHM ECG INTERPRETATION BASED ON A DEFAULT AGE OF 40 YEARS PREVIOUS TRACING : 06/18/2017 23.56 Since the previous tracing, no significant change not ed DOCTOR: Baljinder Rendon Interpretating Date/Time 08/30/2017 23:37:54
== END 2017-08-29 18:29 | disposition home or self-care (01) ==
LOC: PHED 16:13
DX: K21.9 Gastro-esophageal reflux disease without esophagitis (principal); R94.31 Abnormal electrocardiogram [ECG] [EKG]; L40.50 Arthropathic psoriasis, unspecified; F41.8 Other specified anxiety disorders; I10 Essential (primary) hypertension; E11.9 Type 2 diabetes mellitus without complications; F17.210 Nicotine dependence, cigarettes, uncomplicated
CPT/HCPCS: 71045; 80053; 82550; 83880; 84484; 85025; 85379; 93005

== ENCOUNTER 2017-10-15 12:09 | Emergency (ER) | payer SELFPAY ==
[~2017-10-15] VITALS: Ht 154.9 cm; Wt 74.7 kg
[~2017-10-15 12:09] MED LIST changes: +PANT20 PO
[2017-10-15 12:15] VITALS: BP 172/81; PULSE 101; RESP 16; TEMP 98; O2SAT 98
[2017-10-15] MEDS ORDERED: ROBA750T PO (12:30)
[2017-10-15] MEDS ORDERED: MEDR4PAK PO (12:30)
--- NOTE | 2017-10-15 12:32 | PD ---
HPI Chief Complaint: Musculoskeletal Complaint Time Seen by Provider: 12:20 Travel History International Travel<30 days: No Contact w/Intl Traveler<30days: No Traveled to known affect area: No History of Present Illness HPI 52 year old female presents to the emergency department for evaluation of right hand and wrist pain that started approximately 2 weeks ago. No injury. No erythema or warmth. Patient states pain is 6/10, radiates up to right elbow. No fevers or chills. She has not seen her PCP for this issue. She denies any other symptoms or complaints. She states the pain is throbbing and worse at night. Mild severity. PFSH Past Medical History Hx Anticoagulant Therapy: No Arthritis: Yes (PSORIATIC ARTHRITIS) Asthma: No Autoimmune Disease: No Bipolar Disorder: Yes Anxiety: Yes Depression: Yes Heart Rhythm Problems: No Cancer: No Cardiovascular Problems: Yes (htn on meds) High Cholesterol: No Chemotherapy: No Chest Pain: No Congestive Heart Failure: No COPD: No Cerebrovascular Accident: No Diabetes: Yes (type 2) Diminished Hearing: No Endocrine: Yes GERD: Yes Genitourinary: No Headaches: Yes Hiatal Hernia: Yes Hypertension: Yes ( ) Immune Disorder: No Implanted Vascular Access Dvce: No Musculoskeletal: Yes Neurologic: No Psychiatric: Yes Reproductive: No Respiratory: No Immunizations Current: Yes Migraines: Yes Pancreatitis: Yes Radiation Therapy: No Sleep Apnea: No Thyroid Disease: No Ulcer: Yes PNEUMOCCOCAL Vaccine (Year): 2 ?: Not Menopausal: Yes Past Surgical History Abdominal Surgery: Yes (Perforated ulcer -colon) Cardiac Surgery: No Cholecystectomy: Yes Ear Surgery: No Endocrine Surgery: No Eye Surgery: Yes (LASER SX 2006 LAZY EYE REPAIR CHILD) Genitourinary Surgery: No Gynecologic Surgery: No Hysterectomy: No Neurologic Surgery: No Oral Surgery: Yes (tooth extractions 2007) Pacemaker: No Thoracic Surgery: No Social History Alcohol Use: No (hx of etoh abuse last drink 08/2015) Tobacco Use: Yes (1 PPD) Substance Use: No (hx marijuana; denies current use) Allergies-Medications (Allergen,Severity, Reaction): Coded Allergies: acetaminophen (Unverified Allergy, Severe, NAUSEA, 10/15/17) oxycodone (Unverified Allergy, Severe, NAUSEA, 10/15/17) diclofenac (Unverified Adverse Reaction, Unknown, upset stomach, ulcer, ) avoids due to hx etodolac (Unverified Adverse Reaction, Unknown, 10/15/17) avoids due to hx flurbiprofen (Unverified Adverse Reaction, Unknown, 10/15/17) avoids due to hx ibuprofen (Unverified Adverse Reaction, Unknown, 10/15/17) avoids due to hx indomethacin (Unverified Adverse Reaction, Unknown, 10/15/17) avoids due to hx ketoprofen (Unverified Adverse Reaction, Unknown, 10/15/17) avoids due to hx ketorolac (Unverified Adverse Reaction, Unknown, 10/15/17) avoids due to hx naproxen (Unverified Adverse Reaction, Unknown, 10/15/17) avoids due to hx oxaprozin (Unverified Adverse Reaction, Unknown, 10/15/17) avoids due to hx Reported Meds & Prescriptions Reported Meds & Active Scripts Active Protonix (Pantoprazole Sodium) 20 Mg Tab 20 Mg PO DAILY Hydrocodone-Acetaminophen 5-325 mg Tab 1 Tab PO Q4H PRN Xanax (Alprazolam) 1 Mg Tab 1 Mg PO Q8H PRN Reported Remeron (Mirtazapine) 15 Mg Tab 15 Mg PO HS Lamictal (Lamotrigine) 100 Mg Tab 100 Mg PO DAILY Clonidine (Clonidine HCl) 0.2 Mg Tab 0.2 Mg PO BID Review of Systems Except as stated in HPI: all other systems reviewed are Neg Physical Exam Narrative GENERAL: Well-nourished, well-developed female patient, ambulatory and afebrile. SKIN: Focused skin assessment warm/dry. No erythema, swelling, warmth over right hand/wrist. HEAD: Normocephalic. Atraumatic. EYES: No scleral icterus. No injection or drainage. NECK: Supple, trachea midline. No JVD or lymphadenopathy. CARDIOVASCULAR: Regular rate and rhythm without murmurs, gallops, or rubs. Right radial pulse is 2+. RESPIRATORY: Breath sounds equal bilaterally. No accessory muscle use. Lung sounds are clear to auscultation throughout. GASTROINTESTINAL: Abdomen soft, non-tender, nondistended. MUSCULOSKELETAL: No cyanosis, or edema. Patient has tenderness over dorsal wrist. She has full range of motion of wrist and all digits, but reports pain with movement. No obvious deformity. BACK: Nontender without obvious deformity. No CVA tenderness. Data Data Last Documented VS Vital Signs Date Time Temp Pulse Resp B/P (MAP) Pulse Ox O2 Delivery O2 Flow Rate FiO2 10/15/17 12:15 98.0 101 16 172/81 (111) 98 Orders Orders Splint Or Brace Apply/Monitor (10/15/17 12:24) MDM Medical Decision Making Medical Screen Exam Complete: Yes Emergency Medical Condition: Yes Medical Record Reviewed: Yes Differential Diagnosis tendinitis vs. carpal tunnel vs. sprain Narrative Course 52 year old female presents to the emergency department for evaluation of right wrist and hand pain for 2 weeks. No evidence of acute bony injury or infection. Patient appears well on exam. Patient is provided velcro wrist splint for comfort. She will be discharged with a Medrol dose pack and Robaxin. She is encouraged to follow up with her PCP or return here for any acute, worsening of symptoms. The patient was discharged in stable condition with instructions, including return instructions and follow up instructions. Diagnosis Primary Impression: Right wrist pain Referrals: Primary Care Physician call for appointment Patient Instructions: Arm Pain (ED), General Instructions Additional Instructions: Take Medrol dose pack as directed. Ice for 20 mins 4-5 times daily. Take Robaxin as directed as needed. Wear Velcro wrist splint for support. Follow up with your primary care physician. Return to the emergency department for any acute, worsening of symptoms. Med/Other Pt SpecificInfo: Prescription(s) given Scripts Methocarbamol (Robaxin) 750 Mg Tab 750 MG PO TID Y for MUSCLE SPASM, #21 TAB 0 Refills Prov: Rebecca Griggs 10/15/17 Methylprednisolone Dosepak (Medrol Dosepak) 4 Mg Dspk 4 MG PO DIRECTED, #1 DSPK 0 Refills Per Pharmacist direction Prov: Rebecca Griggs 10/15/17 Disposition: 01 DISCHARGE HOME Condition: Stable Rebecca Griggs Oct 15, 2017 12:32
== END 2017-10-15 12:47 | disposition home or self-care (01) ==
LOC: PHEFT 12:09
DX: M25.531 Pain in right wrist (principal); L40.50 Arthropathic psoriasis, unspecified; I10 Essential (primary) hypertension; E11.9 Type 2 diabetes mellitus without complications; F31.9 Bipolar disorder, unspecified; F41.9 Anxiety disorder, unspecified; K21.9 Gastro-esophageal reflux disease without esophagitis; F17.200 Nicotine dependence, unspecified, uncomplicated; Z87.19 Personal history of other diseases of the digestive system
CPT/HCPCS: 99283; L3908